=== PATIENT | female | born 1935 | race Caucasian/White ===

== ENCOUNTER 2016-10-14 15:15 | Inpatient (IN) | payer OTHER ==
[~2016-10-14] VITALS: Ht 152.4 cm; Wt 84.0 kg
--- NOTE | ~2016-10-14 | D ---
[facility] [place] [address] DISCHARGE SUMMARY Name: KASSI PEREZ Room #: 211-P [facility] IN ..#: [id number] Admission: 10/14/16 Attend Phys: Jonathan Sultana MD Discharge: 10/15/16 Date of : 31 Report #: [id number] THIS REPORT FOR: //name// CC: FAM unknown Jonathan Sultana DATE OF SERVICE: 10/15/2016 SUMMARY OF HISTORY AND PHYSICAL: The patient awoke the morning of admission feeling bad with right-sided jaw pain, an angina equivalent, combined with blood pressures in the 220/130 range that did not go down when she took her usual medication. She was seen later in the day in my office, and then admitted to the hospital for unstable angina. SUMMARY OF HOSPITAL COURSE: When admitted to the hospital, her blood pressure was 179/74, despite having been given extra Bystolic in the office an hour earlier. She was seen in cardiovascular medicine consultation by Dr. Stein, who adjusted her blood pressure medications, and the following day, her blood pressure was well controlled at 139/58. She did not have recurrence of her right-sided jaw pain that was her angina equivalent. She remained stable in the hospital overnight. Her serial troponins and electrocardiograms remained normal. I discussed her plan with Dr. Stein, and he recommended that she go home on amlodipine 5 mg, Bystolic 10 mg and 40/12.5. LABORATORY DATA: Creatinine was 1.2 with an EGFR of 43. Albumin was mildly low at 2.9. Serial troponins were negative. Total cholesterol was 221, triglycerides 108, HDL 73 and LDL 127 with VLDL of 22 and non-HDL of 148. WBCs were 8400 and hemoglobin was 11.8. Urinalysis was normal except for a trace of blood and the urine culture is pending at the time of dictation. Renal ultrasound showed the right kidney to be surgically absent. The left kidney was normal in length at 9.9 cm with normal cortical characteristics. No stone masses or hydronephrosis were identified. The Doppler wave forms were normal and the left renal vein was patent. The study was negative for renal artery stenosis. Two-view of the chest was negative. Also noted is moderate plaque in both carotid bulbs from a carotid Doppler of [facility] [address] [place] [address] DISCHARGE SUMMARY Name: ANAKASSI Room #: 211-P [facility] IN [facility]#: [id number] Admission: 10/14/16 Attend Phys: Jonathan Sultana MD Discharge: 10/15/16 Date of : 33 Report #: [id number] 04/10/2007. Echocardiogram showed mild concentric LVH with an ejection fraction of 65-70% with grade 1 abnormal relaxation pattern. Valvular function and geometry was normal. DISCHARGE DIAGNOSES: Discussed at the beginning of this dictation. 1. Unstable angina. 2. Negative evaluation for active ischemia. 3. Hypertensive urgency, controlled with medication. 4. Coronary artery disease. 5. Normally functioning left single kidney. 6. Mild left ventricular concentric hypertrophy and grade 1 diastolic dysfunction indicating hypertension has not been optimally controlled. 7. Hyperlipidemia. 8. Primary biliary cirrhosis. 9. Bilateral carotid artery plaque from 04/10/2007. 10. Chronic kidney disease stage III. 11. Small left frontal meningioma by MRI scanning 04/10/2007. 12. Other medical problems as mentioned in her history and physical. PLAN: The patient is discharged on 40/12.5, one daily; Bystolic 10 mg 1 daily and amlodipine 5 mg daily. She is to stop her atenolol and her losartan. She is to continue on her WelChol and ursodiol that she ordinarily takes at home. She is also to continue her alprazolam, 81 mg of aspirin daily and zolpidem at bedtime. She is to see Dr. Stein this coming week for an evaluation of a nuclear stress study. She is to see me in my office in about 3 weeks. By: [phone] Jonathan Sultana MD /nt
--- NOTE | ~2016-10-14 | EKG ---
[address] [place] [address] ELECTROCARDIOGRAM REPORT Name: KASSI PEREZ Room #: 211-P ADM IN M.R.#: [id number] Admission: 10/14/16 Attend Phys: Jonathan Sultana MD Discharge: Date of : 33 Report #: [id number] THIS REPORT FOR: //name// [facility] Test Date: 2016-10-15 Test Time: 06:47:24 Pat Name: KASSI PEREZ Department: Room: 211 P Gender: F Physiatrist: uday escobedo : 1935 Requested By: Jonathan Sultana Order Number: [id number] MD: Donell Hernandez Measurements Intervals [place] Rate: 61 P: 50 OR: 133 QRS: 29 QRSD: 94 T: 82 QT: 434 QTc: 438 Interpretive Statements Sinus rhythm Anteroseptal infarct, old Compared to ECG 04/15/2007 19:24:50 Premature ventricular complexes are no longer present Electronically Signed On 10-15-2016 8:27:18 CDT by Donell Hernandez [email or web address] <ELECTRONICALLY SIGNED> By: Donell Hernandez MD, [facility] 10/15/16 0827 Donell Hernandez MD, [facility] /EPI
--- NOTE | ~2016-10-14 | H ---
[facility] [place] [address] HISTORY AND PHYSICAL Name: KASSI PEREZ Room #: 211-P ADM IN M.R.#: [id number] Admission: 10/14/16 Attend Phys: Jonathan Sultana MD Discharge: Date of : 33 Report #: [id number] THIS REPORT FOR: //name// CC: FAM unknown Jonathan Sultana DATE OF SERVICE: 10/14/2016 CHIEF COMPLAINT: Right jaw and chest pain, blood pressure staying high. HISTORY OF PRESENT ILLNESS: This is the first at [facility] stay for the patient who is also a new patient in my office this afternoon. She felt funny this morning, weak, and lightheaded and knew that something was wrong. Her blood pressure was 219 systolic at home. It remained high after she took her usual home morning medications: Atenolol 100 mg, losartan 100 mg, 2 Welchol tablets, and 1 ursodiol tablet. She took 2 baby aspirin tablets and a nitroglycerin tablet. Her symptoms persisted. She did have a light sensation of discomfort along the right angle of the mandible that did go away after the aspirin and nitroglycerin tablet. Her other symptoms persisted, but she went with her to the [facility] where he received chemotherapy today. The nurses took her blood pressure there and it remained over 200 systolic. Her daughter then brought her to my office as a new patient. "I really have been short of breath for about a month, know that is several months. I felt things in the heart. I have noticed my blood pressure has been climbing. I mowed the yard last weekend without any problems." PAST MEDICAL HISTORY: Most recently 12/09/2015, she underwent a drug-eluting stent to the LAD on an urgent basis because of a non-STEMI, and she discontinued her Plavix 3 months later, remaining on low dose aspirin alone. A myocardial infarction in 1999, treated with a stent to the LAD, and in 2004, she had a moderately diseased RCA. All three of these cardiac events were heralded by jaw pain. Echo in 2011, showed an ejection fraction of 65% with pulmonary artery pressures at 44 mmHg. She has hypertension and hyperlipidemia. She has carotid artery plaque. She has a history of renal cell cancer treated with nephrectomy and remains a solitary kidney. 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 She has history of primary biliary cirrhosis and declines statin medications. She had degenerative joint disease, history of right adrenal adenoma, [address] [address] HISTORY AND PHYSICAL Name: KASSI PEREZ Room #: 211-P [facility] IN [facility]#: [id number] Admission: 10/14/16 Attend Phys: Jonathan Sultana MD Discharge: Date of : 33 Report #: [id number] SOCIAL HISTORY: She lives independently with her . She quit cigarette smoking in 2004. She does have COPD. REVIEW OF SYSTEMS: Negative otherwise. FAMILY HISTORY: Noncontributory. ALLERGIES: She is allergic to PENICILLIN and states that CEPHALEXIN caused her to go into shock. Her granddaughter recalled a history of BACTRIM allergy. O: GENERAL: Examination shows an 80-year-old female, currently in no distress. HEENT: Unremarkable. NECK: There is no adenopathy, thyromegaly or masses in the neck. There are no carotid bruits present. Jugular venous pressure was elevated in the neck. LUNGS: The posterior lung corrales are entirely normal. However, the anterior lung corrales have a light inspiratory rales present persistently. CARDIOVASCULAR: S1 and S2 are normal and the rhythm is regular. ABDOMEN: Soft, nontender, without hepatosplenomegaly or masses. EXTREMITIES: There is no significant edema in the lower extremities. She reports that her feet are cold, and indeed the capillary refill of the toes is diminished and the toes are somewhat cool to touch. NEUROLOGIC: Screening neurological shows no focal deficits and is normal. LABORATORY DATA: EKG in my office was normal with the exception of Q-waves in V1 and V2 fulfilling criteria for a septal infarct. 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 Urinalysis has a trace of blood present. Hemoglobin is mildly low at 11.8. Creatinine is mildly elevated at 1.2. EGFR is calculated at 43. Troponin is negative. Chest x-ray is normal. A: 1. Angina, unstable. 2. Dyspnea on exertion. 3. Coronary artery disease as described in the body of the report above. Note is made that the patient discontinued her Plavix 3 months after receiving a drug-eluting stent on 12/09/2015. 4. Unilateral kidney from renal cell carcinoma. 5. Chronic obstructive pulmonary disease. 6. Primary biliary cirrhosis. 7. Persistently high blood pressure. 8. Other medical problems as mentioned above. [facility] [address] [place] [address] HISTORY AND PHYSICAL Name: KASSI PEREZ Room #: 211-P ADM IN [facility]#: [id number] Admission: 10/14/16 Attend Phys: Jonathan Sultana MD Discharge: Date of : 33 Report #: [id number] P: In my office this morning, her blood pressure is 198/76 with a pulse of 66. After resting for half an hour, it dropped to 181/77. She was given Bystolic 5 mg, an hour later arriving at the hospital. Her blood pressure is 217/88. An hour after receiving a dose of alprazolam, her blood pressure dropped to 166/65, but now is up to 179/74. Her blood pressure will be followed and treated. The patient requests "3 days of life support, no more" and for that reason is a full code blue. ADDITIONAL ALLERGY: LEVAQUIN causes itching. Penicillin,cephalexin caused shock, bactrim By: [id number] Jonathan Sultana MD /nt
--- NOTE | ~2016-10-14 | EKG ---
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: Taty CARTER : 1935 Requested By: Jonathan Sultana Order Number: [id number] MD: Donell Hernandez Measurements Intervals [place] Rate: 59 P: 46 [place]: 138 QRS: 30 QRSD: 109 T: 80 QT: 407 QTc: 404 Interpretive Statements Sinus rhythm Premature ventricular premature complexes Cannot rule out anteroseptal infarct, old Compared to ECG 04/15/2007 19:24:50 Ventricular premature complex(es) now present Electronically Signed On 10-15-2016 8:20:05 CDT by Donell Hernandez [email or web address] <ELECTRONICALLY SIGNED> By: Donell Hernandez MD, [facility] 10/15/16 0820 1715 1715 Donell Hernandez MD, [facility] /EPI
--- NOTE | ~2016-10-14 | HC ---
[facility] [place] [address] CONSULTATION Name: ANAKASSI Adan Room #: 211-P [facility] IN ..#: [id number] Admission: 10/14/16 Attend Phys: Jonathan Sultana MD Discharge: 10/15/16 Date of : 33 Report #: [id number] THIS REPORT FOR: //name// CC: FAM unknown Jonathan Sultana DATE OF SERVICE: 10/14/2016 HISTORY OF PRESENT ILLNESS: An 80-year-old female who does have a history of coronary disease. She was in Dr. Sultana's office suffering a short episode of jaw pain today and some hypertension while having her at the [facility]. She has a history of coronary artery disease and prior infarcts, but no significant LV dysfunction by history. We have not seen her here. She has been followed in [place] until this point. I do have the last catheterization report from 11/2015. There was a stent placed in the mid RCA at that time. There were 20%-30% circumflex and LAD lesions and a previously placed LAD stent that was widely patent. The left main had a distal 30% narrowing. The stent was a 3.5 x 15 Resolute stent that was post dilated. She has had no issues since that time. She did stop Plavix. She otherwise has been compliant with her medications. She has primary biliary cirrhosis, so is not on a statin. She is on losartan 25, atenolol 50, aspirin, Xanax, Benadryl, Welchol 625 three tablets b.i.d., ursodiol, fish oil and Ambien. She is pain free. The EKG has some nonspecific changes. She does have some PVCs, possible old septal infarct by the EKG. LABORATORY DATA: Laboratory work is relatively unremarkable. Her creatinine is 1.2, potassium 4.4. Troponin is negative. H and H are 11.8 and 35.9. PAST MEDICAL HISTORY: Positive for coronary artery disease with prior stents, most recently 11/2015 and normal ejection fraction and a PA pressure of 40 by more recent echo, primary biliary cirrhosis but this has been stable and has had this for 40 years she states. She has had a renal cell with a nephrectomy. Right adrenal adenoma, DJD, history of VRE, hypertension and hypercholesterolemia. SOCIAL HISTORY: She lives with her . She is the caregiver. He has multiple myeloma. She is accompanied by her granddaughter. She quit smoking in 2004, 40-50 pack years prior. No alcohol. FAMILY HISTORY: Parents lived quite elderly. There is no premature CAD. ALLERGIES: SULFA, PENICILLIN, KEFLEX and BACTRIM. PHYSICAL EXAMINATION: GENERAL: She is pleasant and alert. She is pain free. VITAL SIGNS: Blood pressure is still mildly elevated at 166/64, pulse 60s. [address] [address] CONSULTATION Name: KASSI PEREZ Room #: 211-P DIS IN M.R.#: [id number] Admission: 10/14/16 Attend Phys: Jonathan Sultana MD Discharge: 10/15/16 Date of : 33 Report #: [id number] HEENT: Eyes reveal xanthelasmas. Pharynx is clear. NECK: Shows preserved upstrokes without JVD or bruits. LUNGS: Clear. CARDIOVASCULAR: Regular rate and rhythm, S1 and S2. ABDOMEN: Soft. No HSM or abdominal bruit. EXTREMITIES: Reveal no edema. Her pulses are intact but diminished. NEUROLOGIC: Nonfocal. SKIN: Warm and dry without xanthoma or ulcer. MUSCULOSKELETAL: Generalized arthritic changes. ASSESSMENT: 1. Chest pain, suspect noncardiac. 2. Coronary artery disease with history of prior LAD and RCA stent. This RCA stent was placed in 11/2015, preserved LV function. 3. Hypertension. 4. Hypercholesterolemia. 6. Primary biliary cirrhosis. 7. History of renal cell with nephrectomy. RECOMMENDATIONS AND PLAN: I agree with repeat enzymes and EKG. We will add amlodipine 10, we will discontinue atenolol and utilize Bystolic 10 for better blood pressure effects. I suspect after reviewing the cardiac catheterization, it is not likely we would have significant progression, but some stress testing either in or outpatient would be warranted. I would like to see the echo Doppler and see what the blood pressure trend is tomorrow, and we will have further discussion with Dr. Sultana in the a.m. I did discuss this with her and her granddaughter who is currently present. Thank you for allowing me to assist in the care of this patient. <ELECTRONICALLY SIGNED> By: Hank Stein MD, FACC 10/18/16 0815 2142 0720 Hank Stein MD, FACC /nt
--- NOTE | ~2016-10-14 | 2DMMODE ---
[facility] [address] [place] [address] 2 D/M-MODE ECHOCARDIOGRAM Name: ANAKASSI Room #: 211-P [facility] IN [facility].#: [id number] Admission: 10/14/16 Attend Phys: Jonathan Sultana, Discharge: Date of : 31 Date of Service: 10/15/16 1455 Report #: [id number] THIS REPORT FOR: //name// APPROVED REPORT Study performed: 10/15/2016 12:54:40 EXAM: Comprehensive 2D, Doppler, and color-flow Echocardiogram Patient Location: Bedside Room #: 211 Blood Pressure: 139/42 mmHg HR: 78 bpm Other Information Study Quality: Good Indications CAD Chest Pain Hypertension/HDD 2D Dimensions LVEF(%): 70.00 (>50%) IVSd: 12.24 (7-11mm) LVOT Diam: 18.00 (18-24mm) LVDd: 40.42 mm PWd: 10.59 (7-11mm) Ascending Aorta: 29.68 mm LVDs: 18.00 (25-40mm) Aortic Root: 25.64 mm Ch's LVEF: 70.00 % Volumes Left Atrial Volume (Systole) Single Plane 4CH: 48.34 mL Single Plane 2CH: 53.82 mL LA ESV Index: 30.00 mL/m2 Aortic Valve AoV Peak Max.: 1.25 m/s AO Peak Gr.: 7.02 mmHg LV Max P.87 mmHg LV Max: 1.10 m/s Mitral Valve E/A Ratio: 0.7 MV Decel. Time: 324.38 ms [facility] [address] [place] [address] 2 D/M-MODE ECHOCARDIOGRAM Name: ANAKASSI Adan Room #: 211-P [facility] IN ..#: [id number] Admission: 10/14/16 Attend Phys: Jonathan Sultana, Discharge: Date of : 33 Date of Service: 10/15/16 1455 Report #: [id number] MV E Max Max.: 0.99 m/s MV A Max.: 1.37 m/s MV PHT: 94.07 ms Pulmonary Valve PV Peak Max.: 0.79 m/s PV Peak Gr.: 2.48 mmHg Pulmonary Vein P Vein S: 58.1 m/s P Vein D: 32.3 m/s P Vein A Dur.: 34.4 m/s PVa Duration: 138 Tricuspid Valve RAP Estimate: 5.00 mmHg Left Ventricle The left ventricle is normal size. There is normal LV segmental wall motion. Mild concentric left ventricular hypertrophy. Left ventricular systolic function is normal. The left ventricular ejection fraction is within the normal range. LVEF is 65-70%. Grade I - abnormal relaxation pattern. Right Ventricle The right ventricle is normal size. The right ventricular systolic function is normal. Atria The left atrium size is normal. The right atrium size is normal. Aortic Valve The Aortic valve is sclerotic. No aortic regurgitation is present. There is no aortic valvular stenosis. Mitral Valve There is mitral annular calcification. There is no mitral valve regurgitation noted. No evidence of mitral valve stenosis. Tricuspid Valve The tricuspid valve is normal in structure. There is no tricuspid valve regurgitation noted. Pulmonic Valve The pulmonary valve is normal in structure. There is no pulmonic valvular regurgitation. [facility] [place] [address] 2 D/M-MODE ECHOCARDIOGRAM Name: KASSI PEREZ Room #: 211-P [facility] IN ..#: [id number] Admission: 10/14/16 Attend Phys: Jonathan Sultana, Discharge: Date of : 31 Date of Service: 10/15/16 1455 Report #: [id number] Great Vessels The aortic root is normal in size. IVC is normal in size and collapses with >50% inspiration Pericardium There is no pericardial effusion. <Conclusion> The left ventricle is normal size. Mild concentric left ventricular hypertrophy. LVEF is 65-70%. The Aortic valve is sclerotic. There is mitral annular calcification. The tricuspid valve is normal in structure. <ELECTRONICALLY SIGNED> By: Darshan Farias MD 10/15/16 1455 1455 145 Darshan Farias MD /INF
[2016-10-14 15:32] VITALS: BP 217/88
[2016-10-14 16:30] VITALS: BP 199/81
[2016-10-14 17:10] LABS: HEMATOCRIT 35.9 % (37.0-47.0); HEMOGLOBIN 11.8 gm/dL (12.0-15.0); MCH 27.2 pg (26.0-34.0); MCV 82.6 fL (80.0-100.0); RBC 4.34 mil/uL (4.20-5.00); WBC 8.4 thou/uL (4.0-11.0)
[2016-10-14 17:24] LABS: ALBUMIN 3.1 g/dL (3.4-5.0); ALKALINE PHOSPHATASE 107 U/L (46-116); ANION GAP 7 mmol/L (7-16); BUN 19 mg/dL (7-18); CALCIUM 9.8 mg/dL (8.5-10.1); CHLORIDE 101 mmol/L (98-107); CO2 29 mmol/L (21-32); CREATININE 1.2 mg/dL (0.6-1.0); GLUCOSE 93 mg/dL (74-106); POTASSIUM 4.4 mmol/L (3.5-5.1); SGOT 24 U/L (15-37); SGPT 22 U/L (30-65); SODIUM 137 mmol/L (136-145); TOTAL BILIRUBIN 0.3 mg/dL (<0.1-1.0); TOTAL PROTEIN 7.2 g/dL (6.4-8.2); TROPONIN-I < 0.04 ng/mL (<0.04-0.07)
[2016-10-14] MEDS ORDERED: WELCHOL 625 MG625 M1 PO (18:09)
[2016-10-14] MEDS ORDERED: ATENOLOL 100MG100 MG PO (18:15)
[2016-10-14] MEDS ORDERED: LOSARTAN POTAS100 MG PO (18:16)
[2016-10-14] MEDS ORDERED: URSODIOL300 MG PO (18:17)
[2016-10-14] MEDS ORDERED: XANAX 0.25 MG0.25 MG PO (18:18)
[2016-10-14] MEDS ORDERED: ZOLPIDEM TARTRA10 MG PO (18:18)
[2016-10-14] MEDS ORDERED: NITROGLYCERIN0.4 MG SUBLING (18:20)
[2016-10-14] MEDS ORDERED: PANTOPRAZOLE SO40 M1 PO (18:20)
[2016-10-14] MEDS ORDERED: ASPIR 8181 MG PO (18:22)
[2016-10-14] MEDS ORDERED: BENADRYL25 MG PO (18:22)
[2016-10-14 18:36] VITALS: BP 166/65
[2016-10-14 18:39] LABS: URINE BILIRUBIN NEGATIVE (Negative); URINE BLOOD TRACE (Negative); URINE COLOR YELLOW; URINE GLUCOSE-RANDOM* NEGATIVE (Negative); URINE KETONES NEGATIVE (Negative); URINE LEUKOCYTES-REFLEX NEGATIVE (Negative); URINE PROTEIN (DIPSTICK) NEGATIVE (Negative); URINE SPECIFIC GRAVITY <= 1.005 (1.003-1.035); URINE UROBILINOGEN 0.2 E.U./dl (0.2-1.0)
[2016-10-14 19:50] VITALS: BP 179/74
[2016-10-14 23:35] VITALS: BP 134/71
[2016-10-15 01:00] VITALS: BP 149/69
[2016-10-15 04:45] VITALS: BP 119/44
[2016-10-15 10:27] LABS: ALBUMIN 2.9 g/dL (3.4-5.0); ALKALINE PHOSPHATASE 101 U/L (46-116); ANION GAP 5 mmol/L (7-16); BUN 17 mg/dL (7-18); CALCIUM 9.6 mg/dL (8.5-10.1); CHLORIDE 104 mmol/L (98-107); CHOLESTEROL 221 mg/dL (<200); CO2 29 mmol/L (21-32); CREATININE 1.2 mg/dL (0.6-1.0); GLUCOSE 100 mg/dL (74-106); HDL CHOLESTEROL 73 mg/dL (>40); LDL CHOLESTEROL 127 mg/dL (<100); POTASSIUM 4.5 mmol/L (3.5-5.1); SGOT 20 U/L (15-37); SGPT 21 U/L (30-65); SODIUM 138 mmol/L (136-145); TOTAL BILIRUBIN 0.5 mg/dL (<0.1-1.0); TOTAL PROTEIN 6.7 g/dL (6.4-8.2); TRIGLYCERIDE 108 mg/dL (<150); TROPONIN-I < 0.04 ng/mL (<0.04-0.07); VLDL 22 mg/dL (<40)
[2016-10-15 16:15] VITALS: BP 139/58
[2016-10-15] MEDS ORDERED: BYSTOLIC10 MG PO (17:02)
[2016-10-15] MEDS ORDERED: AMLODIPINE BESY10 MG PO (17:03)
[2016-10-15 17:27] VITALS: BP 139/58
== END 2016-10-15 17:59 | disposition home or self-care (01) | DRG 303 ==
LOC: 2N 15:15
PROVIDERS: Internal Medicine
DX: I25.110 Atherosclerotic heart disease of native coronary artery with unstable angina pectoris (principal); M19.90 Unspecified osteoarthritis, unspecified site; E78.00 Pure hypercholesterolemia, unspecified; I13.10 Hypertensive heart and chronic kidney disease without heart failure, with stage 1 through stage 4 chronic kidney disease, or unspecified chronic kidney disease; J44.9 Chronic obstructive pulmonary disease, unspecified; K74.3 Primary biliary cirrhosis; I16.0 Hypertensive urgency; E78.5 Hyperlipidemia, unspecified; N18.3 Chronic kidney disease, stage 3 (moderate); I25.2 Old myocardial infarction; Z85.528 Personal history of other malignant neoplasm of kidney; Z90.5 Acquired absence of kidney; Z87.891 Personal history of nicotine dependence; Z95.5 Presence of coronary angioplasty implant and graft; Z88.0 Allergy status to penicillin; Z88.1 Allergy status to other antibiotic agents; Z88.2 Allergy status to sulfonamides; Z88.8 Allergy status to other drugs, medicaments and biological substances
CPT/HCPCS: 10081